=== PATIENT | female | born 1955 | race Caucasian/White ===

== ENCOUNTER → 2016-11-19 | Outpatient (CLI) | payer OTHER ==
[~2016-11-19] MED LIST: FISH OIL 1,001000 M2 PO; FLOMAX0.4 MG PO; HYDROCHLOROTHIA25 M2 GT; LISINOPRIL10 MG PO; MULTI-VITAMIN1 EAC5 PO; NORCO 5-325 TA1 EACH PO; ZOFRAN ODT4 MG PO
== END ==
LOC: RAD 01:10
DX: Z12.31 Encounter for screening mammogram for malignant neoplasm of breast (principal)

== ENCOUNTER → 2017-11-20 | Outpatient (CLI) | payer OTHER | LOC: RAD 01:35 | DX: Z12.31 Encounter for screening mammogram for malignant neoplasm of breast (principal) ==

== ENCOUNTER → 2018-11-23 | Outpatient (CLI) | payer OTHER | LOC: RAD 01:44 | DX: Z12.31 Encounter for screening mammogram for malignant neoplasm of breast (principal) ==